=== PATIENT | male | born 1965 | race Caucasian/White ===

== ENCOUNTER 2018-07-23 08:30 | Day surgery (SDC) | payer OTHER ==
[~2018-07-23 08:30] MED LIST: Lactated Ringers 1,000 ML IV SCH
--- NOTE | 2018-07-23 09:27 | PCM.PREANE ---
Preanesthetic Assessment - Anesthesia/Transfusion/Family Hx Anesthesia History: Prior Anesthesia Without Reaction Family History of Anesthesia Reaction: No Transfusion History: No Prior Transfusion(s) Intubation History: Unknown - Review of Systems General: No Symptoms Pulmonary: No Symptoms Cardiovascular: No Symptoms Gastrointestinal: Hematochezia, Melena, Other (h/o bleeding ulcer requiring cauterization) Neurological: No Symptoms Other: Reports: None - Physical Assessment Height: 5 ft 10 in Weight: 150.139 kg ASA Class: 3 Mental Status: Alert & Oriented x3 Airway Class: Mallampati = 3 Dentition: Reports: Normal Dentition, Broken Tooth/Teeth (right upper ) Thyro-Mental Finger Breadths: 3 Mouth Opening Finger Breadths: 3 ROM/Head Extension: Full Lungs: Clear to Auscultation, Normal Respiratory Effort Cardiovascular: Regular Rate, Regular Rhythm - Allergies Allergies/Adverse Reactions: Allergies Allergy/AdvReac Type Severity Reaction Status Date / Time Penicillins Allergy Cannot Verified 07/19/18 14:48 Remember - Blood Blood Available: No - Anesthesia Plan Pre-Op Medication Ordered: None - Acknowledgements Anesthesia Type Planned: MAC Pt an Appropriate Candidate for the Planned Anesthesia: Yes Alternatives and Risks of Anesthesia Discussed w Pt/Guardian: Yes Pt/Guardian Understands and Agrees with Anesthesia Plan: Yes PreAnesthesia Questionnaire HEENT History: Reports: Allergic Rhinitis, Other (See Below) Other HEENT History: wears contacts Cardiovascular History: Reports: Hypertension Respiratory History: Reports: Sleep Apnea (uses CPAP mashine (brought it with him)) Gastrointestinal History: Reports: Other (See Below) Other Gastrointestinal History: hx bleeding ulcer 15 yrs ago & had dual scope with cauterization of bleeders Genitourinary History: Reports: None Other Musculoskeletal History: hx multiple fractures-nose, jaw, fingers, & ribs Neurological History: Reports: Concussion, Migraines Psychiatric History: Reports: Depression, PTSD Endocrine/Metabolic History: Reports: Obesity/BMI 30+ (BMI 47.5) Hematologic History: Reports: Blood Transfusion(s) Immunologic History: Reports: None Oncologic (Cancer) History: Reports: None Dermatologic History: Reports: None - Past Surgical History Head Surgeries/Procedures: Reports: None HEENT Surgical History: Reports: Naso-Sinus Surgery Cardiovascular Surgical History: Reports: None Respiratory Surgical History: Reports: None GI Surgical History: Reports: Colonoscopy, EGD Male Surgical History: Reports: None Endocrine Surgical History: Reports: None Neurological Surgical History: Reports: None Musculoskeletal Surgical History: Reports: None Oncologic Surgical History: Reports: None Dermatological Surgical History: Reports: None - HOME MEDS Home Medications: Home Meds Cholecalciferol (Vitamin D3) [Vitamin D3] 2,000 units PO DAILY 07/19/18 [History ] Sertraline HCl 150 mg PO DAILY 07/19/18 [History] hydroCHLOROthiazide [Hydrochlorothiazide] 50 mg PO DAILY 07/19/18 [History] - CURRENT (IN HOUSE) MEDS Current Meds: Current Medications Lactated Ringer's (Ringers, Lactated) 1,000 mls @ 125 mls/hr IV ASDIRECTED AASHISH
[2018-07-23] MEDS ORDERED: Ondansetron 4 MG/2 ML SDV ONE (10:09)
[2018-07-23] MEDS ORDERED: Midazolam 1 MG/ML 2 ML SDV ONE (10:10)
[2018-07-23] MEDS ORDERED: Propofol 200 MG/20 ML SDV ONE (10:10)
[2018-07-23] MEDS ORDERED: fentaNYL 100 MCG/2 ML SDV ONE (10:10)
--- NOTE | 2018-07-23 10:59 | PCM.OPNOTE ---
- General Post-Op/Procedure Note Date of Surgery/Procedure: 07/23/18 Operative Procedure(s): egd w bx. colonoscopy w bx Findings: see dict [id number] Pre Op Diagnosis: black tarry stool Post-Op Diagnosis: Same Anesthesia Technique: Moderate Sedation Primary Surgeon: Agustín Keating Pathology: egd bx sessile polyp at distance 20cm when scope withdrawal Complications: None Condition: Good
--- NOTE | 2018-07-23 11:22 | PCM.POSTAN ---
POST ANESTHESIA ASSESSMENT - MENTAL STATUS Mental Status: Alert, Oriented - RESPIRATORY Respiratory Status: Respiratory Rate WNL, Airway Patent, O2 Saturation Stable - CARDIOVASCULAR CV Status: Pulse Rate WNL, Blood Pressure Stable - GASTROINTESTINAL GI Status: No Symptoms - PAIN Pain Score: 0 - POST OP HYDRATION Hydration Status: Adequate & Stable - OBSERVATIONS Free Text/Narrative:: No anesthesia problems, patient skipped recovery room stage of postoperative care.
--- NOTE | 2018-07-23 16:42 | OR ---
SURGEON: Agustín Keating MD DATE OF PROCEDURE: 07/23/2018 PREOPERATIVE DIAGNOSES: History of bleeding ulcer and black tarry stool. PROCEDURES PERFORMED: Esophagogastroduodenoscopy with biopsy and colonoscopy with biopsy. DESCRIPTION OF PROCEDURE: EGD: The patient was taken to the endoscopy room, and with the NEWSSTAND VENDOR, Diprivan was administered. A well-lubricated EGD scope was gently inserted through the oropharynx, down the esophagus, passing through the gastroesophageal junction, into the stomach. The mucosa was examined upon the passage. Any etiology will be noted. Once in the stomach, we continued to advance to the distal antrum, passed through the pylorus into the second portion of the duodenum. Again, the mucosa was examined for any abnormality and etiology. The scope was then retrieved back to the stomach and then retroflexed to look at the fundus of the stomach. If a biopsy was indicated, we will biopsy the antrum, body, and gastroesophageal junction. The air will be sucked out while the scope is retrieved to reduce the patient's discomfort. The patient tolerated the procedure well. There were no intraoperative complications. Dr. Keating was present through the whole procedure. Prior to surgery, a time-out had been called, the patient identified, procedure identified and antibiotic administered. The patient was taken to the endoscopy room. A time out was called, patient identified, and procedure identified. Diprivan was then administrated. Patient went from awake to sleep, hearing doctor talking or door closing is normal. Perineum inspection and digital examination were then performed. A well- lubricated colonoscope was gently inserted through the rectum, advanced past the rectosigmoid junction, the descending colon, splenic flexure, transverse colon, hepatic flexure, ascending colon, arrived to the cecum. Cecum was identified as dictated in the finding. Then the scope was carefully withdrawn while attention was paid to the mucosal surface for any abnormality. Air will be sucked out during the scope withdrawal. At the rectum, retroflexed to examine any rectal diseases, fistula or hemorrhoids. During mucosal examination, abnormality or polyp was noted; picture taken and biopsy performed. Patient tolerated procedure well. There were no intraoperative complications, and Dr. Keating was present throughout the whole procedure. FINDINGS: EGD findings: 1. The patient is easily sedated with NEWSSTAND VENDOR and Diprivan, the patient is soundly snoring. 2. Oropharynx and proximal esophagus are free of disease, stricture, or inflammation. GE junction at 40 shows a pretty significant salmon-colored change consistent with marked GERD. Stomach rugae are normal in appearance. There is some bile. Antrum is normal in appearance. Duodenum is grossly normal. The scope retroflexed to look at the fundus of stomach. There is no hiatal hernia. Biopsy done at antrum, body, GE junction at 40 and sucked out the gas while scope pulling out. Colonoscopy findings: 1. The patient is easily sedated with NEWSSTAND VENDOR and Diprivan, the patient is soundly snoring. 2. Bowel prep is left to be desirable. A lot of opaque liquid stool coating the mucosa makes this a compromised study. The patient has mild diverticulosis on the right colon, very mild, a couple of them. No signs or symptoms of diverticulitis. The patient has 1 small polyp at distance 20 when the scope coming out, removed with cold biopsy forceps. Otherwise, no inflammation, stricture, ulceration, AV malformation, bleeding, none of those. The patient has mild internal hemorrhoid. The patient has moderate anal tags and mild external hemorrhoid. The patient would benefit from repeat colonoscopy in 10 years from today or if clinically indicated otherwise. JANE / MELONIE /[id number]
== END 2018-07-23 12:00 | disposition home or self-care (01) ==
LOC: MW.SDS 08:30
PROVIDERS: ATTEND Surgery
DX: K63.5 Polyp of colon (principal); K29.50 Unspecified chronic gastritis without bleeding; B96.81 Helicobacter pylori [H. pylori] as the cause of diseases classified elsewhere; G47.30 Sleep apnea, unspecified; D64.9 Anemia, unspecified; I10 Essential (primary) hypertension; E66.9 Obesity, unspecified; Z68.42 Body mass index [BMI] 45.0-49.9, adult; Z87.11 Personal history of peptic ulcer disease; Z79.899 Other long term (current) drug therapy; Z88.0 Allergy status to penicillin; Z99.89 Dependence on other enabling machines and devices
CPT/HCPCS: 43239; 45380; J2001; J2250; J2405; J2704; J3010; J7120; 00813; 88305; 88312